=== PATIENT | female | born 1990 | race African-American/Black ===

== ENCOUNTER 2020-12-02 06:22 | Emergency (ER) | payer OTHER, SELFPAY ==
--- NOTE | ~2020-12-02 | XR_ITS ---
EXAMINATION: XR chest 1V portable DATE: 12/02/2020 07:51 INDICATION: Dry cough. COVID. TECHNIQUE: frontal view of the chest was obtained. COMPARISON: None FINDINGS: The lungs are clear with no focal airspace opacities, pulmonary edema, pleural effusion or pneumothor ax. The cardiomediastinal silhouette is normal. Visualized bones and soft tissues are unremarkable. IMPRESSION: 1. No acute cardiopulmonary disease. Reviewed, dictated and finalized at location A.
[2020-12-02 06:32] VITALS: BP 111/69; PULSE 96; RESP 16; TEMP 36.5; O2SAT 100
--- NOTE | 2020-12-02 07:04 | ED.ABDPAIN ---
HPI - Abdominal Pain General Chief Complaint: Abdominal Pain Stated Complaint: abd pain Time Seen by Provider: 12/02/20 07:03 Source: patient Mode of arrival: ambulatory Limitations: no limitations History of Present Illness HPI narrative: Patient is a 29-year-old female who presents for evaluation of cough, congestion, myalgia. Patient states she has been feeling unwell since yesterday. Her ex-boyfriend stated that he had been diagnosed with Covid. She was around him unmasked last week. Patient states she had other exposures to him throughout the week last week. She denies fever. No current chest pain or shortness of breath. No leg swelling or rashes. Patient is not vaccinated. Cough with clear sputum production. No hemoptysis. Related Data Allergies Allergy/AdvReac Type Severity Reaction Status Date / Time No Known Allergies Allergy Verified 12/02/20 07:04 Review of Systems Review of Systems: Narrative: CONSTITUTIONAL: Denies fever, chills, or sweats. EYES: Denies visual changes, redness, or discharge. ENT: Reports rhinorrhea, congestion CARDIOVASCULAR: Denies chest pain, palpitations, or edema. RESPIRATORY: Reports cough without shortness of breath GASTROINTESTINAL: Denies abdominal pain, nausea, vomiting, or diarrhea. GENITOURINARY: Denies dysuria or hematuria. SKIN: Denies rash or itching. MUSCULOSKELETAL: Denies back pain, joint pain, reports myalgias NEUROLOGIC: Denies headache, numbness, or weakness. PSYCHIATRIC: Reports a history of anxiety PMFSH Past Medical History Medical History (Updated 12/02/20 @ 08:52 by Yesenia Good MD) Polysubstance abuse Social History Social History (Updated 12/02/20 @ 07:23 by Yesenia Good MD) Smoking status: Current every day smoker Alcohol intake: current Substance use: current Substance use type: marijuana Gender identity (if verbalized by the patient): Female Exam Narrative: Exam Narrative: GENERAL: Awake, alert, conversant HEAD: Normocephalic, atraumatic. EYES: PERRLA and EOMI. ENT: Nares clear, no rhinorrhea or epistaxis. Mucous membranes moist. NECK: Supple. CHEST: No respiratory distress, breathing even and non labored, lungs are clear bilaterally without rhonchi HEART: Regular rate, sinus rhythm ABDOMEN:Non distended, non tender EXTREMITIES: Normal range of motion. No edema. No calf tenderness. SKIN: Warm, dry, no rash. NEURO:No focal deficits. Alert and oriented x3 Course Vital Signs Vital signs: Vital Signs Temperature 36.5 C 12/02/20 06:32 Pulse Rate 96 12/02/20 06:32 Respiratory Rate 16 12/02/20 06:32 Blood Pressure 111/69 12/02/20 06:32 Pulse Oximetry 100 12/02/20 06:32 Temperature 36.5 C 12/02/20 06:32 Pulse Rate 94 12/02/20 08:23 Respiratory Rate 18 12/02/20 08:23 Blood Pressure 113/72 12/02/20 08:23 Pulse Oximetry 100 12/02/20 08:23 MDM - Abdominal Pain MDM Narrative Medical decision making narrative: Patient presenting for evaluation of rhinorrhea, cough, general malaise with recent exposure to Covid. At the time of assessment, ABCs are intact and vital signs are stable. No distress. Lungs are clear to auscultation bilaterally. No abdominal pain on assessment. Nontender in all 4 quadrants. Work-up is reassuring. There is mild lymphopenia. No electrolyte derangement or acute kidney injury. No UTI. No chest pain or shortness of breath or other symptoms to warrant troponin or EKG testing at this time. No evidence of pneumonia on chest x-ray. Patient was swabbed for Covid, these results will be called to the on-call primary care provider. Patient was discharged home in stable condition advised to return should symptoms change or worsen. Differential Diagnosis Differential diagnosis: Likely other (Pneumonia, viral syndrome, Covid) Lab Data Attestation: I reviewed the patient's lab results. Result diagrams: 12/02/20 07:54 12/02/20 07:53 Labs: Lab Re
[2020-12-02 08:02] LABS: Basophils Percent Auto 0.4 % (0.2-1.2); Eosinophils Percent Auto 0.3 % (0-4.4); Hematocrit 41.9 % (37.0-47.0); Hemoglobin 13.4 g/dL (12.0-15.0); Immature Granulocyte Absolute 0.02 K/mm3 (0.00-0.031); Immature Granulocyte Percent A 0.3 % (0-0.5); Lymphocytes Absolute Auto 1.25 K/mm3 (0.9-3.2); Lymphocytes Percent Auto 16.7 % (18.3-44.2); Mean Corpuscular Volume 87.5 fl (80-100); Mean Platelet Volume 9.6 fl (7.4-10.4); Monocytes Percent Auto 13.5 % (2.6-8.5); Neutrophils Absolute Auto 5.2 K/mm3 (1.3-6.7); Neutrophils Percent Auto 68.8 % (45.5-73.1); Platelet Count Result 373 k/mm3 (150-375); Red Blood Count 4.79 M/mm3 (4.2-5.4); Red Cell Distribution Width 13.2 % (11.5-14.5); White Blood Count 7.5 K/mm3 (4.5-10.0)
[2020-12-02] MEDS: SODIUM CHLORIDE 0.9% IV 1,000 ML 999 ML IV CONT (08:03)
[2020-12-02] MEDS: ONDANSETRON INJ 4 MG/2 ML VIAL IV PUSH (08:03)
[2020-12-02 08:09] LABS: Add Urine Microscopic? YES; Appearance Urine Cloudy (Clear); Bilirubin Urine Negative (Negative); Blood Urine Negative (Negative); Color Urine Amber (Yellow); Glucose Urine UA Negative (Negative); Ketones Urine 1+ mg/dL (Negative); Leukocyte Esterase Ur Negative LEU/UL (Negative); Nitrate Urine Negative (Negative); Protein Urine 2+ mg/dL (Negative); Urobilinogen Urine Negative mg/dL (<2.0)
[2020-12-02 08:10] LABS: Specific Grav Ur 1.035 (1.001-1.035)
[2020-12-02 08:11] LABS: Alanine Aminotransferase 15 U/L (4-35); Albumin Level 4.5 g/dL (3.5-5.1); Alkaline Phosphatase 79 U/L (38-126); Anion Gap 11 mmol/L (8-16); Aspartate Amino Transferase 27 U/L (14-36); Bilirubin,Total 0.6 mg/dL (0.2-1.3); Blood Urea Nitrogen 17 mg/dL (7-17); Calcium 9.3 mg/dL (8.4-10.2); Carbon Dioxide 27 mmol/L (22-30); Chloride 102 mmol/L (98-107); Estimated CRCL calculation 63 ml/min; Estimated Glomerular Filt Rate > 60; Glucose 105 mg/dL (65-105); Potassium 3.9 mmol/L (3.4-5.0); Sodium 140 mmol/L (137-145)
[2020-12-02 08:23] VITALS: BP 113/72; PULSE 94; RESP 18; O2SAT 100
[2020-12-02 08:23] LABS: RBC Urine 0-2 /hpf (0-2); Squamous Epithelial Cell Urine Moderate /hpf (Few); WBC Urine 0-3 /hpf (0-3)
[2020-12-02 08:24] LABS: Bacteria Urine 1+ /hpf; Mucus Urine Few /lpf
--- NOTE | 2020-12-02 08:57 | PC.NURSE ---
Pt came out to the nurses station stating I took that thing out of my arm! whatever you gave me is making me feel worse
[2020-12-02 18:42] LABS: SARS-CoV-2 RNA PCR Negative
== END 2020-12-02 09:04 | disposition home or self-care (01) ==
PROVIDERS: Emergency Provider Emergency Medicine
DX: B34.9 Viral infection, unspecified (principal); Z20.822 Contact with and (suspected) exposure to COVID-19; F17.210 Nicotine dependence, cigarettes, uncomplicated
CPT/HCPCS: 36415; 71045; 80053; 81001; 85025; 96361; 96365; 96375; 99284; C9803; J0131; J2405; J7030; U0003; U0005